=== PATIENT | male | born 1960 | race Caucasian/White ===

== ENCOUNTER 2017-07-20 17:24 | Inpatient (IN) | payer OTHER ==
[~2017-07-20] VITALS: Ht 187.9 cm; Wt 104.8 kg
[2017-07-20] VITALS (8 sets, daily range): BP systolic 122–170; BP diastolic 71–90
--- NOTE | ~2017-07-20 | CON ---
[place], [place] REPORT OF CONSULTATION NAME: RIC GREENE UNIT #: [id number] ROOM: 402 DOCTOR: MELISSA MULTANI MD BIRTHDATE: [birth year] DOS: 07/21/2017 CHIEF COMPLAINT: Chest pain. HISTORY OF PRESENT ILLNESS: The patient is a 57-year-old man with no previous history of coronary artery disease. He states that he has had two stress tests in the distant past that were normal, but these were over 10 years ago. For the last several months, he has noticed increased fatigue and dyspnea. He states that he used to be able to walk up 9 flights of stairs and now he gets nervous if he has to walk up 3 or 4. He does have increased dyspnea with exertion as well as episodic chest tightness and occasional pains in his left arm. He states that in general he has just felt "unwell" in the last few months. Yesterday while cutting grass, he noticed the symptoms had gotten worse and therefore he came to the Emergency Room to be checked. Since he has been in the hospital, he has had no symptoms. Electrocardiograms show inferior Q-waves, but no acute changes. Serial cardiac biomarkers have been negative. His risk factors include a remote history of cigarette abuse. The patient quit 20 years ago. He does have type 2 diabetes mellitus, on oral therapy, hyperlipidemia and hypertension, all of which are being managed. PAST MEDICAL HISTORY: Includes: 1. Essential hypertension. 2. Type 2 diabetes mellitus, on oral medications. 3. Hyperlipidemia. 4. History of cigarette abuse, abstinent since the late . 5. 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 6. A CT of the chest for cancer screening 2-3 years ago reportedly was unremarkable. MEDICATIONS PRIOR TO ADMISSION: Aspirin 81 mg daily, esomeprazole 40 mg daily, metformin 500 mg daily, simvastatin 20 mg at bedtime and valsartan with hydrochlorothiazide 80/12.5 one tablet daily. ALLERGIES: The patient has no known drug allergies. FAMILY HISTORY: The patient's father had congenital pulmonary stenosis. He did have coronary artery disease in his later years. He after a 3-vessel bypass at age 71. Mother had a history of "tachycardia" and of complications of Alzheimer's disease at age 76. He has sisters who have no history of heart disease. REVIEW OF SYSTEMS: The patient denies diplopia or loss of vision. He denies lightheadedness or syncope. He denies orthopnea or PND. He denies fevers, chills, sweats or recent weight change. He has noted increased fatigue and dyspnea with exertion. He denies nausea or vomiting. He denies hemoptysis or hematemesis. He denies bleeding from his stools or urine. He denies any change in bowel or bladder habits. He denies orthopnea or PND. He denies any peripheral edema or history of deep venous thrombosis. He denies any skin rashes. He denies polydipsia or polyuria. He denies heat or cold intolerance. [place], [place] REPORT OF CONSULTATION NAME: RIC GREENE UNIT #: [id number] ROOM: [facility] DOCTOR: MELISSA MULTANI MD BIRTHDATE: [birth year] The remainder of the review of systems is negative except as noted above. SOCIAL HISTORY: The patient is and lives with his . He works doing [employer] work at a [employer]. He was a smoker, but quit over 20 years ago. He does drink 1 or 2 beers a day. PHYSICAL EXAMINATION: GENERAL: The patient is a well-nourished white male, who is awake, alert and oriented. VITAL SIGNS: Pulse is 58 and regular, blood pressure is 132/72. He weighs 104.8 kg and has a body mass index of 29.7. HEENT: Normocephalic and atraumatic. Extraocular muscles are intact. Sclerae are clear. Pupils are equal, round and react to light. The oral mucosa is moist. Tongue is midline. NECK: Supple. He has no jugular distention. Carotids are full. There are no bruits. He has no neck or supraclavicular masses. No thyromegaly. LUNGS: Respirations are unlabored. His chest is clear to auscultation and percussion. He has no presacral edema or chest wall tenderness. CARDIOVASCULAR: His heart has a regular rhythm. He has a fourth heart sound, but no third heart sound or murmur. The PMI is not displaced. There is no precordial heave, lift or thrill. ABDOMEN: Soft and normally active without masses, organomegaly or bruits. EXTREMITIES: Showed no clubbing, cyanosis or edema. Peripheral pulses are easily palpated in the feet bilaterally. LABORATORY DATA: I reviewed his electrocardiogram, which showed sinus rhythm. He does have inferior Q-waves, but no acute ST or T-wave changes. Chest x-ray showed clear lung sánchez with normal cardiac silhouette. Hemoglobin is 15.2, white count 8300, platelet count 177,000. Sodium 138, potassium 3.6, chloride 104, CO2 of 25, BUN 22, creatinine 0.96. Serial troponin levels have been normal. Hemoglobin A1c is 8.0. Total cholesterol is 139, triglycerides 161, LDL 70, HDL 37. IMPRESSIONS: 1. Left precordial chest pain with exertion, relieved by rest, consistent with angina. 2. Type 2 diabetes mellitus, on oral medications. 3. Essential hypertension. 4. Remote history of cigarette abuse. PLAN: The patient does not have objective evidence for an acute coronary syndrome, but his symptoms are getting worse. In order to determine our next steps, I will be doing an exercise stress test today. If this does show high risk findings, then cardiac catheterization will be recommended. Further recommendations will be dependent upon the results of the stress test. I thank the hospitalist physicians for asking our advice regarding the patient's management. [place], [place] REPORT OF CONSULTATION NAME: RIC GREENE [place] UNIT #: [id number] ROOM: [facility] DOCTOR: MELISSA MULTANI MD BIRTHDATE: [birth year] MELISSA MULTANI MD CM:CONSTR:REPORT OF CONSULTATION 0850 07/21/17 1045 interface
[2017-07-20] MEDS ORDERED: VALSARTAN-HCTZ1 EACH PO (17:32)
[2017-07-20] MEDS ORDERED: AVPAK METFORMI500 M1 PO (17:33)
[2017-07-20] MEDS ORDERED: ESOMEPRAZOLE MA40 M1 PO (17:33)
[2017-07-20] MEDS ORDERED: SIMVASTATIN20 MG PO (17:33)
[2017-07-20] MEDS ORDERED: ASPIR LOW81 MG PO (17:33)
[2017-07-20 17:39] LABS: BASO # 0.1 10*3/uL (0.0-0.1); EOS # 0.3 10*3/uL (0.0-0.4); EOS % 2.8 % (1.0-4.0); HEMATOCRIT 43.7 % (42.0-52.0); HEMOGLOBIN 15.7 g/dl (14.0-18.0); LYMPH # 2.5 10*3/uL (1.3-4.4); LYMPH % 23.9 % (27.0-41.0); MEAN CELL VOLUME 85.7 fl (80.0-94.0); MEAN CORPUSCULAR HGB 30.8 pg (27.0-31.0); MEAN CORPUSCULAR HGB CONC 35.9 g/dl (33.0-37.0); MEAN PLATELET VOLUME 10.9 fl (9.6-12.3); MONO # 1.1 10*3/uL (0.1-1.0); MONO % 10.5 % (3.0-9.0); NEUT # 6.4 10*3/uL (2.3-7.9); NEUT % 61.4 % (47.0-73.0); PLATELET COUNT AUTOMATED 224 10*3/uL (130-400); WHITE BLOOD COUNT 10.5 10*3/uL (4.8-10.8)
[2017-07-20 17:48] LABS: ACT PARTIAL THROMBO TIME 26.7 SECONDS (20.8-31.5); INTERNATIONAL NORM RATIO 1.1 (2.0-3.5)
[2017-07-20 17:55] LABS: ALBUMIN 4.2 gm/dl (3.1-4.5); ALKALINE PHOSPHATASE 62 U/L (45-117); BUN 19 mg/dl (7-24); CHLORIDE 103 mmol/L (98-107); CREATININE 1.58 mg/dL (0.70-1.30); POTASSIUM 3.8 mmol/L (3.5-5.1); SGOT/AST 32 IU/L (3-35); SGPT/ALT 43 U/L (12-78); SODIUM 138 mmol/L (136-145); TOTAL PROTEIN 7.9 gm/dL (6.4-8.2)
[2017-07-20 17:56] LABS: TROPONIN I < 0.015 ng/ml (<0.045)
[2017-07-21 06:45] LABS: BASO # 0.1 10*3/uL (0.0-0.1); BASO % 0.8 % (0.0-1.0); EOS # 0.4 10*3/uL (0.0-0.4); EOS % 4.2 % (1.0-4.0); HEMATOCRIT 42.2 % (42.0-52.0); HEMOGLOBIN 15.2 g/dl (14.0-18.0); LYMPH # 1.6 10*3/uL (1.3-4.4); LYMPH % 19.6 % (27.0-41.0); MEAN CELL VOLUME 85.9 fl (80.0-94.0); MEAN PLATELET VOLUME 10.8 fl (9.6-12.3); MONO # 0.8 10*3/uL (0.1-1.0); MONO % 9.1 % (3.0-9.0); NEUT # 5.5 10*3/uL (2.3-7.9); NEUT % 65.9 % (47.0-73.0); PLATELET COUNT AUTOMATED 177 10*3/uL (130-400); RED BLOOD COUNT 4.91 10*6/uL (4.50-5.90); RED CELL DISTRI WIDTH 12.3 % (0-14.5); WHITE BLOOD COUNT 8.3 10*3/uL (4.8-10.8)
[2017-07-21 06:48] LABS: ALKALINE PHOSPHATASE 55 U/L (45-117); BUN 22 mg/dl (7-24); CHLORIDE 104 mmol/L (98-107); CHOLESTEROL 139 mg/dL (<200); CREATININE 0.96 mg/dL (0.70-1.30); FREE T4 1.02 ng/dl (0.76-1.46); HDL CHOLESTEROL 37 mg/dl (40-60); LDL CHOLESTEROL 70 mg/dL (9-159); PHOSPHOROUS 3.1 mg/dL (2.5-4.9); POTASSIUM 3.6 mmol/L (3.5-5.1); SGOT/AST 27 IU/L (3-35); SGPT/ALT 38 U/L (12-78); SODIUM 138 mmol/L (136-145); TOTAL PROTEIN 7.3 gm/dL (6.4-8.2); TRIGLYCERIDES 161 mg/dl (<150); VLDL CHOLESTEROL 32 mg/dL (6-40)
[2017-07-21 07:44] LABS: VITAMIN D, 25-HYDROXY 40.7 ng/mL (30-100)
[2017-07-21 08:00] VITALS: BP 132/72
[2017-07-21 12:00] VITALS: BP 120/67
[2017-07-21] MEDS ORDERED: AVPAK METFORMI500 M1 PO (14:47)
== END 2017-07-21 15:02 | disposition home or self-care (01) | DRG 313 ==
LOC: ED 17:24 → 4E 18:41 → EDHOLD 18:41 → 4E 18:59
PROVIDERS: Emergency Medicine; Internal Medicine
PROC: 3E033HZ Introduction of Radioactive Substance into Peripheral Vein, Percutaneous Approach (ICD-10-PCS; principal; 2017-07-21)
PROC: 4A02XM4 Measurement of Cardiac Total Activity, External Approach (ICD-10-PCS; principal; 2017-07-21)
DX: R07.89 Other chest pain (principal); N17.0 Acute kidney failure with tubular necrosis; E11.65 Type 2 diabetes mellitus with hyperglycemia; E83.51 Hypocalcemia; E83.41 Hypermagnesemia; D72.810 Lymphocytopenia; I10 Essential (primary) hypertension; E78.5 Hyperlipidemia, unspecified; E66.3 Overweight; Z68.29 Body mass index [BMI] 29.0-29.9, adult; Z87.891 Personal history of nicotine dependence; Z82.49 Family history of ischemic heart disease and other diseases of the circulatory system; Z82.0 Family history of epilepsy and other diseases of the nervous system; Z79.82 Long term (current) use of aspirin; Z79.84 Long term (current) use of oral hypoglycemic drugs; Z79.899 Other long term (current) drug therapy

== ENCOUNTER 2023-10-31 22:45 | Emergency (ER) | payer MEDICARE ==
[~2023-10-31] VITALS: Ht 187.9 cm; Wt 102.1 kg
[~2023-10-31 22:45] MED LIST: ASPIR LOW81 MG PO; AVALIDE 300-121 EACH PO; AVPAK METFORMI500 M1 PO; BENZONATATE100 M1 PO; ESOMEPRAZOLE MA40 M1 PO; Glimepiride1 MG PO; METFORMIN XR500 MG PO; PIRFENIDONE PO; SIMVASTATIN20 MG PO; SIMVASTATIN40 MG PO; VALSARTAN-HCTZ1 EACH PO
[2023-10-31 22:50] VITALS: BP 142/80
[2023-10-31] MEDS ORDERED: OXYCODONE HCL (IR) 5 MG TAB PO ONE (23:00)
[2023-10-31] MEDS ORDERED: PROGRAF0.5 MG PO (23:58)
[2023-11-01] MEDS ORDERED: PERCOCET 5-3251 EACH PO (00:05)
== END 2023-11-01 00:14 | disposition home or self-care (01) ==
LOC: ED 22:45
DX: J93.9 Pneumothorax, unspecified (principal); E11.9 Type 2 diabetes mellitus without complications; K21.9 Gastro-esophageal reflux disease without esophagitis; E78.00 Pure hypercholesterolemia, unspecified; Z95.5 Presence of coronary angioplasty implant and graft; Z87.891 Personal history of nicotine dependence

== ENCOUNTER 2024-05-09 08:17 | Emergency (ER) | payer MEDICARE, OTHER ==
[~2024-05-09] VITALS: Ht 187.9 cm; Wt 102.1 kg
[~2024-05-09 08:17] MED LIST changes: +PERCOCET 5-3251 EACH PO; +PROGRAF0.5 MG PO
[2024-05-09 08:40] LABS: BASO % 0.2 % (0.0-1.0); EOS % 0.1 % (1.0-4.0); HEMATOCRIT 37.4 % (42.0-52.0); MEAN CELL VOLUME 92.3 fl (80.0-94.0); MEAN CORPUSCULAR HGB 31.4 pg (27.0-31.0); MEAN PLATELET VOLUME 9.8 fl (9.6-12.3); MONO # 0.7 10*3/uL (0.1-1.0); MONO % 5.5 % (3.0-9.0); NEUT # 11.3 10*3/uL (2.3-7.9); PLATELET COUNT AUTOMATED 194 10*3/uL (130-400); RED BLOOD COUNT 4.05 10*6/uL (4.50-5.90); RED CELL DISTRI WIDTH 12.9 % (0-14.5); WHITE BLOOD COUNT 13.3 10*3/uL (4.8-10.8)
[2024-05-09 09:08] LABS: ALKALINE PHOSPHATASE 58 U/L (46-116); BUN 31 mg/dl (9-23); CHLORIDE 107 mmol/L (98-107); SGPT/ALT 37 U/L (5-49); TOTAL PROTEIN 6.4 gm/dL (6.0-8.0)
[2024-05-09] MEDS ORDERED: Ketamine Hydrochloride 500 MG/10 ML VIAL IV ONE (10:40)
[2024-05-09] MEDS ORDERED: PROPOFOL 200 MG/20 ML VIAL IV ONE (10:40)
[2024-05-09] MEDS ORDERED: SODIUM CHLORIDE 0.9% 1,000 ML IV ONE (10:50)
[2024-05-09 11:14] VITALS: BP 152/72
== END 2024-05-09 14:23 | disposition short-term general hospital (02) ==
LOC: ED 08:17
PROVIDERS: Internal Medicine
DX: S82.52XA Displaced fracture of medial malleolus of left tibia, initial encounter for closed fracture (principal); S82.832A Other fracture of upper and lower end of left fibula, initial encounter for closed fracture; S93.05XA Dislocation of left ankle joint, initial encounter; E11.9 Type 2 diabetes mellitus without complications; K21.9 Gastro-esophageal reflux disease without esophagitis; E78.00 Pure hypercholesterolemia, unspecified; Z95.5 Presence of coronary angioplasty implant and graft; Z87.891 Personal history of nicotine dependence; W10.9XXA Fall (on) (from) unspecified stairs and steps, initial encounter; Y93.89 Activity, other specified; Y92.89 Other specified places as the place of occurrence of the external cause; Y99.8 Other external cause status